=== PATIENT | female | born 1995 | race Asian ===

== ENCOUNTER 2025-02-05 07:05 | Outpatient (REF) | payer OTHER, SELFPAY ==
--- NOTE | ~2025-02-05 | US_ITS ---
EXAMINATION: US PELVIS CLINICAL INFORMATION: Endometrioma involving left ovary, drained 12/12/2024 COMPARISON: None available. TECHNIQUE: Ultrasound of the pelvis is performed using both transabdominal and transvaginal transducers along with Doppler. Transvaginal imaging is performed due to inadequate visualization transabdominally. FINDINGS: Uterus: The uterus is anteverted and measures 5 x 2.6 x 4.6 cm. The uterus is heterogeneous. The endometrial stripe is not clearly defined. The uterus is smooth in contour and has normal myometrial echogenicity. No visible fibroid. Adnexa: Both ovaries are visualized. There is normal color flow to the adnexa. There is no ovarian torsion. There is no pelvic ascites or fluid collection. Right ovary measures 3.5 x 3.1 x 2.2 cm. Left ovary measures 6.1 x 4.1 x 8.4 cm. There is a hypoechoic mass with increased through transmission and incomplete peripheral blood flow that measures 7.2 x 5.0 x 7.8 cm. US/US pelvic complete IMPRESSION: 7.8 cm left ovarian endometrioma or hemorrhagic cyst. Follow-up in 6-12 weeks. Adenomyosis. Electronically signed by: Adelso Flores MD 02/05/2025 03:14 PM EDT
== END 2025-02-05 07:06 | disposition home or self-care (01) ==
LOC: HO.UMASIMG 07:05
PROVIDERS: Visit Provider Family Medicine
DX: N80.122 Deep endometriosis of left ovary (principal); M35.00 Sjogren syndrome, unspecified
CPT/HCPCS: 76856

== ENCOUNTER 2025-04-11 08:56 | Outpatient (REF) | payer OTHER, SELFPAY ==
--- NOTE | ~2025-04-11 | US_ITS ---
EXAMINATION: US PELVIS CLINICAL INFORMATION: History of endometriosis of the left ovary. Drainage of endometrioma 11/2024. COMPARISON: 02/05/2025. TECHNIQUE: Ultrasound of the pelvis is performed using both transabdominal technique only along with Doppler. Transvaginal imaging was not performed (patient declined). FINDINGS: Uterus: The uterus is anteverted, anteflexed, and measures 8.6 x 2.5 x 5.0 cm. The cervix has a normal appearance. The double wall endometrial thickness could not be well assessed using transabdominal technique. The uterus is smooth in contour and has normal myometrial echogenicity. No visible fibroid. Adnexa: Both ovaries are visualized. There is normal color flow to the adnexa. There is no ovarian torsion. There is no pelvic ascites or fluid collection. No adnexal masses. Right ovary measures 3.7 x 2.1 x 2.4 cm. Volume = 9.5 mL. (Previous volume measured 12.4 mL). Normal sonographic appearance. Left ovary measures 10.3 x 7.5 x 10.6 cm. Volume = 423.2 mL. There is a large complex cyst measuring 8.9 x 6.7 x 9.7 cm. This has low level internal homogeneous echoes and is fairly typical in appearance for an endometrioma. Previously this measured 7.2 x 5.0 x 7.8 cm. US/US pelvic complete IMPRESSION: 1. Somewhat limited examination due to lack of transvaginal scanning. Transabdominal technique was utilized only. The endometrium could not be well evaluated. 2. Slightly enlarging left ovarian endometrioma, currently measuring 8.9 x 6.7 x 9.7 cm, previously measuring 7.2 x 5.0 x 7.8 cm. 3. No free pelvic fluid. Normal right ovary. Electronically signed by: Jarad Carvalho MD 04/11/2025 04:29 PM [facility]
== END 2025-04-11 08:57 | disposition home or self-care (01) ==
LOC: HO.UMASIMG 08:56
PROVIDERS: Visit Provider Family Medicine
DX: N80.122 Deep endometriosis of left ovary (principal); Z13.220 Encounter for screening for lipoid disorders; Z13.1 Encounter for screening for diabetes mellitus
CPT/HCPCS: 76830; 76856